=== PATIENT | male | born 1950 | race Caucasian/White ===

== ENCOUNTER → 2017-05-04 | Outpatient (CLI) | payer OTHER ==
--- NOTE | 2017-05-04 17:43 | Diagnostic Imaging Report ---
PROCEDURE:ABDOMINAL ULTRASOUND COMPARISON:None. INDICATIONS:RUQ PAIN/GB FINDINGS: Liver: Measures 16.1 cm in length. Normal hepatic parenchymal echogenicity. No focal mass. Main portal vein: 0.9 cm. Hepatopetal flow. Gallbladder: Present. There is a suggestion of a 3 mm stone in the gallbladder neck. No gallbladder wall thickening or pericholecystic fluid. No gallstones elsewhere. Common Bile Duct: 0.4 cm.. Sonographic Griffin's sign: Negative Right kidney: 10.1 cm. The echotexture is increased. Multiple cysts are present measuring up to 11 mm. No hydronephrosis. No evidence of calculus. Left kidney: 11.2 cm. The echotexture is increased. Multiple cysts are present measuring up to 3.3 x 2.6 x 2.4 cm. No hydronephrosis or evidence of calculus. Spleen: 9.7 cm in length. The echotexture is normal. No evidence of mass. Pancreas: The visualized portions demonstrate no mass or ductal dilatation. Inferior vena cava: Normal. Aorta: Normal. Ascites: None. CONCLUSION: 1. Potential stone in the gallbladder neck measuring 3 mm. No sonographic evidence of acute cholecystitis. 2. Increased renal echotexture consistent with medical renal disease. Bilateral renal cysts. 3. The remainder of the visualized structures are unremarkable. Dictated by: Amaris Dockery M.D. on 05/04/2017 at 17:51 Electronically approved by: Amaris Dockery M.D. on 05/04/2017 at 17:51
== END ==
LOC: US 15:50 → EDSEX 16:15
PROVIDERS: ATTEND Family Medicine
DX: R10.11 Right upper quadrant pain (principal); K80.20 Calculus of gallbladder without cholecystitis without obstruction
CPT/HCPCS: 76700